=== PATIENT | female | born 1985 | race Caucasian/White ===

== ENCOUNTER 2017-04-07 13:18 | Outpatient (CLI) | payer OTHER ==
--- NOTE | 2017-04-07 14:02 | XRay Report ---
ROUTINE CHEST, TWO VIEWS: HISTORY: chest pain. The trachea, heart, mediastinal contour, lung ruiz and bony thorax are unremarkable. IMPRESSION: Unremarkable chest x-ray.
== END 2017-04-07 13:19 | disposition home or self-care (01) ==
LOC: XRAY 13:18
PROVIDERS: ATTEND Specialist
DX: R76.12 Nonspecific reaction to cell mediated immunity measurement of gamma interferon antigen response without active tuberculosis (principal)
CPT/HCPCS: 71020